=== PATIENT | male | born 1965 | race Caucasian/White ===

== ENCOUNTER 2022-01-19 10:56 | Inpatient (IN) | payer BC ==
[~2022-01-19 10:56] MED LIST: Iopamidol-370 76% 500 ML 1 ML ONE
[2022-01-19 12:11] LABS: #Eosinphils 0.1 thou/uL (0.0-0.7); #Lymphocytes 1.6 thou/uL (1.20-3.40); #Monocytes 0.6 thou/uL (0.11-0.59); #Neutrophils 6.2 thou/uL (1.40-6.50); %Eosinophils 1.4 % (0.0-10.0); %Lymphocytes 18.5 % (21.0-51.0); %Monocytes 7.1 % (0.0-10.0); Hemoglobin 11.8 g/dL (14.0-18.0); Mean Corpuscular HGB CONC 33.7 g/dL (32.0-36.0); Mean Corpuscular Hemoglobin 31.2 pg (27.0-31.0); Mean Corpuscular Volume 92.8 fl (78.0-98.0); Mean Platelet Volume 7.7 fL (7.4-10.4); Platelet Count 170 10x3/uL (130-400); RBC Distribution Width 12.2 % (11.5-14.5); Red Blood Cell (RBC) Count 3.78 mill/uL (4.70-6.10); White Blood Cell (WBC) Count 8.6 10x3/uL (4.8-10.8)
[2022-01-19] MEDS ORDERED: Tenecteplase 50 MG - STEMI KIT ONE (12:12)
[2022-01-19 12:32] LABS: ALT (SGPT) 12 U/L (8-55); AST (SGOT) 15 U/L (5-34); Albumin 3.5 g/dL (3.5-5.0); Alkaline Phosphatase 60 U/L (40-110); Anion Gap 14 mmol/L (10-20); BUN (Urea Nitrogen) 12 mg/dL (8.4-25.7); Bilirubin, Total 1.3 mg/dL (0.2-1.2); CK (CPK) 124 U/L (30-200); Calc. Creatinine Clearance 0 mL/min (70-130); Calcium 8.3 mg/dL (7.8-10.44); Carbon Dioxide 25 mmol/L (22-29); Chloride 103 mmol/L (98-107); Estimated GFR 99; Globulin 1.7 g/dL (2.4-3.5); Glucose 172 mg/dL (70-105); Lipase 26 U/L (8-78); Potassium 4.1 mmol/L (3.5-5.1); Protein, Total 5.2 g/dL (6.0-8.3); Sodium 138 mmol/L (136-145)
[2022-01-19 12:33] LABS: Acetaminophen Less than 10.0 mcg/mL (10.0-30.0); Alcohol Less than 10 mg/dL (Less than 10); Salicylate Less than 8.0 mg/dL (15.0-30.0)
[2022-01-19 13:15] LABS: Bilirubin Negative (Negative); Blood, Urine Negative (Negative); Clarity Clear (Clear); Glucose, Urine (Dipstick) Normal (Negative); Ketone, Urine Negative (Negative); Leukocyte Negative Leu/uL (Negative); Nitrite Negative (Negative); Protein, Urine (Dipstick) Negative (Neg-Trace); Specific Gravity, Urine 1.019 (1.002-1.036); Urobilinogen Normal mg/dL (Less than 2); pH, Urine 5.5 (5.0-9.0)
[2022-01-19 13:25] LABS: Amphetamine Not Detected (NotDetected); Barbiturates Screen Not Detected (NotDetected); Benzodiazepine Screen Not Detected (NotDetected); Cocaine Metabolite Screen Not Detected (NotDetected); Methadone Not Detected (NotDetected); Methamphetamine Not Detected (NotDetected); Opiate Screen Not Detected (NotDetected); Oxycodone Screen Not Detected (NotDetected); Phencyclidine (PCP) Not Detected (NotDetected); THC/Cannabinoid Screen Not Detected (NotDetected); Tricyclic Screen Detected (NotDetected)
[2022-01-19 14:44] LABS: SARS-CoV-2 NAA Rapid Test Not Detected (NotDetected)
[2022-01-19] MEDS ORDERED: hydrALAZINE 20 MG/ML VIAL SLOW IVP PRN (17:34)
[2022-01-19] MEDS ORDERED: Dextrose 5% in Water 1,000 ML IV PRN (17:34)
[2022-01-19] MEDS ORDERED: HumaLOG 300 UNITS/3 ML VIAL SC PRN (17:34)
[2022-01-19] MEDS ORDERED: niCARdipine 25 MG in Sodium Chloride 0.9% 250 ML 250 ML IVPB PRN (17:34)
[2022-01-19] MEDS ORDERED: Communication Order-Pharmacy FS PRN (17:34)
[2022-01-19] MEDS ORDERED: Dextrose 50% Abboject 50 ML SYRINGE SLOW IVP PRN (17:34)
[2022-01-19 17:38] VITALS: BMI 32.2
[2022-01-19] MEDS: CLOZAPINE 100 MG PO SCH (21:04)
[2022-01-19] MEDS: Atorvastatin Calcium 40 MG TAB PO SCH (21:04)
[2022-01-20] MEDS: Labetalol HCl 100 MG/20 ML VIAL SLOW IVP PRN ×2 (02:35→06:18)
[2022-01-20] MEDS: Acetaminophen 325 MG TAB PO PRN ×2 (07:25→16:04)
[2022-01-20] MEDS: Nicotine 21 MG PATCH TD SCH ×2 (07:26→08:57)
[2022-01-20] MEDS ORDERED: FLU VACC QS2022-23(6MOS UP)/PF 60 MCG/0.5 ML SYRINGE IM ONE (09:00)
[2022-01-20] MEDS ORDERED: Metoprolol Tartrate 25 MG TAB PO SCH ×2 (12:30→21:00)
[2022-01-20 13:01] LABS: #Eosinphils 0.1 thou/uL (0.0-0.7); #Lymphocytes 2.3 thou/uL (1.20-3.40); #Monocytes 0.7 thou/uL (0.11-0.59); #Neutrophils 6.1 thou/uL (1.40-6.50); %Basophils 0.4 % (0.0-1.0); %Eosinophils 1.4 % (0.0-10.0); %Monocytes 7.1 % (0.0-10.0); %Neutrophils 66.1 % (42.0-75.0); Mean Corpuscular HGB CONC 32.8 g/dL (32.0-36.0); Mean Corpuscular Hemoglobin 30.9 pg (27.0-31.0); Mean Corpuscular Volume 94.2 fl (78.0-98.0); Mean Platelet Volume 7.7 fL (7.4-10.4); Platelet Count 190 10x3/uL (130-400); RBC Distribution Width 12.5 % (11.5-14.5); Red Blood Cell (RBC) Count 4.19 mill/uL (4.70-6.10); White Blood Cell (WBC) Count 9.2 10x3/uL (4.8-10.8)
[2022-01-20 13:24] LABS: ALT (SGPT) 14 U/L (8-55); AST (SGOT) 13 U/L (5-34); Albumin 3.8 g/dL (3.5-5.0); Alkaline Phosphatase 68 U/L (40-110); Anion Gap 13 mmol/L (10-20); BUN (Urea Nitrogen) 11 mg/dL (8.4-25.7); Bilirubin, Total 1.1 mg/dL (0.2-1.2); Calc. Creatinine Clearance 150 mL/min (70-130); Carbon Dioxide 28 mmol/L (22-29); Chloride 103 mmol/L (98-107); Estimated GFR 103; Globulin 2.3 g/dL (2.4-3.5); Glucose 99 mg/dL (70-105); Magnesium 1.8 mg/dL (1.6-2.6); Phosphorus 4.2 mg/dL (2.3-4.7); Potassium 3.8 mmol/L (3.5-5.1); Protein, Total 6.1 g/dL (6.0-8.3); Sodium 140 mmol/L (136-145)
[2022-01-20] MEDS ORDERED: Electrolyte Replacement Protocol 1 EACH FS SCH (14:00)
[2022-01-20] MEDS ORDERED: clonazePAM 1 MG TAB PO PRN (14:04)
[2022-01-20] MEDS ORDERED: Fluticasone Propionate Nasal Spray 16 gm Bottle NASAL PRN (14:11)
[2022-01-20] MEDS ORDERED: Magnesium 2 GM/50 ML(in water) 2 GM in Premix Bag 1 BAG IVPB SCH (14:15)
[2022-01-20] MEDS ORDERED: Electrolyte Replacement Protocol FS PRN (14:15)
[2022-01-20] MEDS: Artificial Tear Sol 15 ML BOT EA EYE SCH ×2 (15:05→21:00)
[2022-01-20] MEDS: Metoprolol Tartrate 50 MG TAB PO SCH (16:04)
[2022-01-20] MEDS ORDERED: Aspirin 325 mg Enteric Coated Tablet PO SCH (21:00)
[2022-01-20] MEDS: Atorvastatin Calcium 40 MG TAB PO SCH (21:05)
[2022-01-20] MEDS: Senokot S 8.6-50 MG TAB PO SCH (21:05)
[2022-01-20] MEDS: CLOZAPINE 100 MG PO SCH (21:06)
[2022-01-21 05:11] LABS: #Eosinphils 0.1 thou/uL (0.0-0.7); #Lymphocytes 2.6 thou/uL (1.20-3.40); #Monocytes 0.8 thou/uL (0.11-0.59); #Neutrophils 4.4 thou/uL (1.40-6.50); %Basophils 0.4 % (0.0-1.0); %Eosinophils 1.9 % (0.0-10.0); %Lymphocytes 32.3 % (21.0-51.0); %Monocytes 9.8 % (0.0-10.0); %Neutrophils 55.7 % (42.0-75.0); Hemoglobin 13.1 g/dL (14.0-18.0); Mean Corpuscular HGB CONC 33.6 g/dL (32.0-36.0); Mean Corpuscular Hemoglobin 31.6 pg (27.0-31.0); Mean Corpuscular Volume 93.9 fl (78.0-98.0); Mean Platelet Volume 7.4 fL (7.4-10.4); Platelet Count 178 10x3/uL (130-400); RBC Distribution Width 12.5 % (11.5-14.5); Red Blood Cell (RBC) Count 4.15 mill/uL (4.70-6.10); White Blood Cell (WBC) Count 7.9 10x3/uL (4.8-10.8)
[2022-01-21 05:54] LABS: Anion Gap 10 mmol/L (10-20); BUN (Urea Nitrogen) 14 mg/dL (8.4-25.7); Calc. Creatinine Clearance 144 mL/min (70-130); Calcium 8.9 mg/dL (7.8-10.44); Carbon Dioxide 27 mmol/L (22-29); Cardiac Risk 3.3 (Less than 4.5); Chloride 107 mmol/L (98-107); Cholesterol 101 mg/dl (< 200 Desired); Estimated GFR 102; Glucose 98 mg/dL (70-105); HDL Cholesterol 31 mg/dL (>60 Neg Risk); LDL Cholesterol, Calculated 54 mg/dL; Sodium 140 mmol/L (136-145); Triglycerides 82 mg/dL (Less than 150)
[2022-01-21 07:52] LABS: Magnesium 1.8 mg/dL (1.6-2.6)
[2022-01-21] MEDS ORDERED: Magnesium 2 GM/50 ML(in water) 2 GM in Premix Bag 1 BAG IVPB SCH (08:30)
[2022-01-21] MEDS ORDERED: Aspirin 325 mg Enteric Coated Tablet PO SCH ×2 (09:00→21:00)
[2022-01-21] MEDS ORDERED: Losartan 25 MG TAB PO SCH (09:00)
[2022-01-21] MEDS: Senokot S 8.6-50 MG TAB PO SCH ×2 (10:49→20:42)
[2022-01-21] MEDS: Metoprolol Tartrate 50 MG TAB PO SCH ×2 (10:50→20:42)
[2022-01-21] MEDS: Escitalopram Oxalate 20 mg Tablet PO SCH (11:10)
[2022-01-21] MEDS: Heparin 5,000 UNITS/ML VIAL SC SCH ×2 (11:11→20:42)
[2022-01-21] MEDS: Artificial Tear Sol 15 ML BOT EA EYE SCH ×3 (12:00→20:42)
[2022-01-21] MEDS ORDERED: Polyethylene Glycol 3350 17 GM Packet PO PRN (13:21)
[2022-01-21] MEDS: metFORMIN 500 MG TAB PO SCH (17:56)
[2022-01-21] MEDS: Losartan 25 MG TAB PO SCH (20:42)
[2022-01-21] MEDS: CLOZAPINE 100 MG PO SCH (20:43)
[2022-01-21] MEDS ORDERED: Folic Acid 1 MG TAB PO SCH (21:00)
[2022-01-21] MEDS ORDERED: Atorvastatin Calcium 40 MG TAB PO SCH (21:00)
[2022-01-21] MEDS ORDERED: Cyanocobalamin (Vitamin B-12) 1,000 MCG TAB PO SCH (21:00)
[2022-01-22] MEDS ORDERED: Multivit, Therapeutic 1 TAB PO SCH (09:00)
[2022-01-22] MEDS: Senokot S 8.6-50 MG TAB PO SCH (09:01)
[2022-01-22] MEDS: Metoprolol Tartrate 50 MG TAB PO SCH (09:02)
[2022-01-22] MEDS: metFORMIN 500 MG TAB PO SCH (09:02)
[2022-01-22] MEDS: Losartan 25 MG TAB PO SCH (09:03)
[2022-01-22] MEDS: Artificial Tear Sol 15 ML BOT EA EYE SCH (09:03)
[2022-01-22] MEDS: Escitalopram Oxalate 20 mg Tablet PO SCH (09:03)
[2022-01-22] MEDS: Heparin 5,000 UNITS/ML VIAL SC SCH (09:04)
[2022-01-22] MEDS ORDERED: Milk Of Magnesia 30 ML UDCUP PO PRN (10:02)
[2022-01-22 11:46] VITALS: BP 146/89; TEMP 97.8
== END 2022-01-22 13:34 | disposition home or self-care (01) | DRG 62 ==
LOC: ERS 10:56 → ERHOLD 12:34 → CCU 17:39 → NEURO 01-20 17:46
PROVIDERS: ADMIT Internal Medicine; ATTEND Family Medicine
DX: G45.9 Transient cerebral ischemic attack, unspecified (principal); G81.94 Hemiplegia, unspecified affecting left nondominant side; Z23 Encounter for immunization; R29.810 Facial weakness; E11.9 Type 2 diabetes mellitus without complications; E78.5 Hyperlipidemia, unspecified; F31.9 Bipolar disorder, unspecified; F17.210 Nicotine dependence, cigarettes, uncomplicated; F25.9 Schizoaffective disorder, unspecified; R29.703 NIHSS score 3; E83.42 Hypomagnesemia; Z88.8 Allergy status to other drugs, medicaments and biological substances; Z79.84 Long term (current) use of oral hypoglycemic drugs; Z79.899 Other long term (current) drug therapy
CPT/HCPCS: 36415; 36416; 70450; 70496; 70498; 70551; 71045; 80048; 80053; 80061; 80306; 80307; 81003; 82140; 82550; 83690; 83735; 84100; 84443; 84484; 85025; 85610; 90471; 90686; 93005; 93306; G0008; J0360; J1644; J3101; J3475; Q9967